=== PATIENT | male | born 1985 | race African-American/Black ===

== ENCOUNTER 2019-10-28 05:33 | Emergency (ER) | payer SELFPAY ==
[2019-10-28 06:00] LABS: #Basophils 0.1 thou/uL (0.0-0.2); #Eosinphils 0.1 thou/uL (0.0-0.7); #Lymphocytes 3.3 thou/uL (1.20-3.40); #Monocytes 0.4 thou/uL (0.11-0.59); #Neutrophils 2.7 thou/uL (1.40-6.50); %Basophils 0.9 % (0.0-1.0); %Eosinophils 2.2 % (0.0-10.0); %Lymphocytes 49.3 % (21.0-51.0); %Monocytes 6.7 % (0.0-10.0); %Neutrophils 40.8 % (42.0-75.0); Mean Corpuscular HGB CONC 33.8 g/dL (32.0-36.0); Mean Corpuscular Hemoglobin 28.6 pg (27.0-31.0); Mean Corpuscular Volume 84.8 fL (78.0-98.0); Mean Platelet Volume 6.8 fL (7.4-10.4); Platelet Count 304 thou/uL (130-400); RBC Distribution Width 12.3 % (11.5-14.5); Red Blood Cell (RBC) Count 4.89 mill/uL (4.70-6.10); White Blood Cell (WBC) Count 6.7 thou/uL (4.8-10.8)
[2019-10-28 06:20] LABS: ALT (SGPT) 44 U/L (8-55); AST (SGOT) 30 U/L (5-34); Albumin 4.2 g/dL (3.5-5.0); Alkaline Phosphatase 121 U/L (40-110); Anion Gap 11 mmol/L (10-20); BUN (Urea Nitrogen) 15 mg/dL (8.9-20.6); Bilirubin, Total 0.2 mg/dL (0.2-1.2); Calc. Creatinine Clearance 0 mL/min (70-130); Calcium 9.3 mg/dL (7.8-10.44); Carbon Dioxide 27 mmol/L (22-29); Chloride 106 mmol/L (98-107); Estimated GFR-MDRD 66; Globulin 2.9 g/dL (2.4-3.5); Glucose 125 mg/dL (70-105); Protein, Total 7.1 g/dL (6.0-8.3); Sodium 140 mmol/L (136-145)
--- NOTE | 2019-10-28 08:30 | CT ---
CT BRAIN WITHOUT CONTRAST: Date: 10/28/19 INDICATION: History of syncopal episode. COMPARISON: None. FINDINGS: No acute infarct, hemorrhage, or hydrocephalus is present. Septum pellucidum and third ventricle are midline. The skull and extracranial soft tissues are within normal limits. Visualized mastoid air ke ls and paranasal sinuses are clear. IMPRESSION: No acute intracranial abnormality. POS: BH
--- NOTE | 2019-10-28 08:32 | RAD ---
CHEST 1 VIEW: Date: 10/28/19 INDICATION: 34-year-old male with syncopal episode while using the bathroom. COMPARISON: None. FINDINGS: Lungs are clear. Heart size is normal. No pleural effusion or pneumothorax evident. No acute osseous abnormality is evident. IMPRESSION: No acute cardiopulmonary abnormality. POS: BH
--- NOTE | 2019-10-30 21:09 | EKG ---
Test Reason : Blood Pressure : / mmHG Vent. Rate : 052 BPM Atrial Rate : 052 BPM P-R Int : 174 ms QRS Dur : 098 ms QT Int : 424 ms P-R-T Axes : 040 -13 -11 degrees QTc Int : 394 ms Sinus bradycardia Minimal voltage criteria for LVH, may be normal variant Nonspecific T wave abnormality Abnormal ECG Confirmed by RANDAL ALFORD ([id number]), editor sound MAURIZIO MARTINEZ ([id number]) on 10/30/2019 9:07:45 PM Referred By: Confirmed By:RANDAL ALFORD
== END 2019-10-28 06:40 | disposition home or self-care (01) ==
LOC: ERS 05:33
DX: R55 Syncope and collapse (principal)
CPT/HCPCS: 70450; 71045; 80053; 84484; 85025; 93005

== ENCOUNTER 2021-11-02 00:46 | Emergency (ER) | payer SELFPAY | END 2021-11-02 01:18 | disposition home or self-care (01) | LOC: ERS 00:46 | DX: M25.562 Pain in left knee (principal) | CPT/HCPCS: 99281 ==

== ENCOUNTER 2023-01-26 22:16 | Emergency (ER) | payer BC, SELFPAY | END 2023-01-26 23:36 | disposition home or self-care (01) | LOC: ERS 22:16 | DX: B35.3 Tinea pedis (principal) | CPT/HCPCS: 99283 ==